=== PATIENT | female | born 1980 | race Caucasian/White ===

== ENCOUNTER 2025-01-20 12:03 | Emergency (ER) | payer OTHER ==
[~2025-01-20] VITALS: Ht 172.7 cm; Wt 160.1 kg
[~2025-01-20 12:03] MED LIST: ATIVAN1 MG PO; DRAMAMINE25 M2 PO; VENTOLIN HFA18 GM
[2025-01-20] MEDS ORDERED: DIPHTH,PERTUSS(ACELL),TET VAC 0.5 ML SYRINGE IM ONE (13:00)
[2025-01-20 14:13] VITALS: BP 140/70
== END 2025-01-20 14:17 | disposition home or self-care (01) ==
LOC: ED 12:03
DX: T24.492A Corrosion of unspecified degree of multiple sites of left lower limb, except ankle and foot, initial encounter (principal); T24.491A Corrosion of unspecified degree of multiple sites of right lower limb, except ankle and foot, initial encounter; Z23 Encounter for immunization; Z88.2 Allergy status to sulfonamides; Z79.899 Other long term (current) drug therapy
CPT/HCPCS: 90471; 90715; 99283-25